=== PATIENT | female | born 1980 | race Caucasian/White ===

== ENCOUNTER 2016-10-05 16:09 | Emergency (ER) | payer BC ==
[~2016-10-05] VITALS: Ht 175.3 cm; Wt 63.6 kg
[~2016-10-05 16:09] MED LIST: ADVI200T PO; PENI50TA PO
[2016-10-05] MEDS ORDERED: [UNRECOGNIZED DRUG - OTHER] (16:15)
[2016-10-05] MEDS ORDERED: [UNRECOGNIZED DRUG - OTHER] XX (17:45)
[2016-10-05] MEDS ORDERED: NORCOTAB PO (17:51)
[2016-10-05] MEDS ORDERED: IBUP80TA PO (17:51)
[2016-10-05] MEDS ORDERED: ROBA500T PO (17:51)
[2016-10-05 17:56] VITALS: BP 121/68
== END 2016-10-05 18:13 | disposition home or self-care (01) ==
LOC: M ED 16:09
DX: M54.32 Sciatica, left side (principal)

== ENCOUNTER → 2018-03-10 | Outpatient (REF) | payer BC, OTHER, SELFPAY ==
[~2018-03-10] MED LIST changes: +IBUP80TA PO; +NORCOTAB PO; +ROBA500T PO; +[UNRECOGNIZED DRUG - OTHER]; +[UNRECOGNIZED DRUG - OTHER] XX
[2018-03-10 19:04] LABS: APPEARANCE, URINE CLEAR (CLEAR); BACTERIA, URINE AUTO NEGATIVE (NEGATIVE); BILIRUBIN, URINE AUTO NEGATIVE (NEGATIVE); BLOOD, URINE BLOOD NEGATIVE (NEGATIVE); COLOR, URINE STRAW (YELLOW); GLUCOSE, URINE (UA) AUTO NEGATIVE (NEGATIVE); KETONE, URINE AUTO NEGATIVE (NEGATIVE); LEUKOCYTE ESTERASE, URINE AUTO NEGATIVE (NEGATIVE); NITRITE, URINE AUTO NEGATIVE (NEGATIVE); PROTEIN, URINE AUTO NEGATIVE (NEGATIVE); RBC, URINE AUTO 0 /HPF (0-3); SPECIFIC GRAVITY URINE AUTO 1.004 (1.002-1.035); SQUAMOUS EPITHELIAL CELL UR AU 0 /HPF (0-6); UROBILINOGEN, URINE AUTO 0.2 mg/dL (0.0-2.0); WBC, URINE AUTO 0 /HPF (0-3)
== END ==
LOC: M LAB REF 16:29
PROVIDERS: ATTEND Physician Assistant Medical
DX: N39.0 Urinary tract infection, site not specified (principal)

== ENCOUNTER → 2020-04-28 | Outpatient (REF) | payer OTHER ==
[~2020-04-28] MED LIST changes: +HYDR-3715 PO; -NORCOTAB PO; +PENI500T PO; -PENI50TA PO
== END ==
LOC: M LAB REF 21:43
PROVIDERS: ATTEND Physician Assistant Medical
DX: Z20.828 Contact with and (suspected) exposure to other viral communicable diseases (principal)

== ENCOUNTER → 2022-09-29 | Outpatient (CLI) | payer OTHER ==
[2022-09-29 15:30] LABS: HEMATOCRIT 42.4 % (36.0-47.0); HEMOGLOBIN 14.3 g/dl (12.0-15.5); MEAN CORPUSCULAR HEMOGLOBIN 29.5 pg (27.0-33.0); MEAN CORPUSCULAR HGB CONC 33.7 g/dl (32.0-36.5); MEAN CORPUSCULAR VOLUME 87.6 fl (80.0-96.0); PLATELET COUNT, AUTOMATED 277 10^3/uL (150-450); RED BLOOD COUNT 4.84 10^6/uL (4.00-5.40); WHITE BLOOD COUNT 7.3 10^3/uL (4.0-10.0)
[2022-09-29 15:56] LABS: HEMOGLOBIN A1c 4.9 % (4.0-6.0)
[2022-09-29 16:05] LABS: ALBUMIN 3.9 G/DL (3.2-5.2); ALKALINE PHOSPHATASE 44 U/L (46-116); ALT/SGPT 15 U/L (7.0-40); AST/SGOT < 8 U/L (<34); BILIRUBIN,TOTAL 0.3 MG/DL (0.3-1.2); BLOOD UREA NITROGEN 14 MG/DL (9-23); CALCIUM LEVEL 9.1 MG/DL (8.5-10.1); CARBON DIOXIDE LEVEL 29 MMOL/L (20-31); CHLORIDE LEVEL 107 MMOL/L (98-107); CHOLESTEROL LEVEL 144 MG/DL (<200); CHOLESTEROL RISK RATIO 2.61 (<5); CREATININE FOR GFR 0.61 MG/DL (0.55-1.30); GLOMERULAR FILTRATION RATE > 60.0 (>58); GLUCOSE, FASTING 78 MG/DL (60-100); HDL CHOLESTEROL 55.1 MG/DL (>40); LDL CHOLESTEROL 69.9 MG/DL (<100); NON-HDL-C 88.9 MG/DL; POTASSIUM SERUM 4.4 MMOL/L (3.5-5.1); SODIUM LEVEL 142 MMOL/L (136-145); TOTAL IRON BINDING CAPACITY 324 UG/DL (250-425); TOTAL PROTEIN 6.7 G/DL (5.7-8.2); TRIGLYCERIDES LEVEL 95 MG/DL (<150)
[2022-09-29 16:06] LABS: IRON (FE) 85 UG/DL (50-170); PERCENT SATURATION 26.2 % (13.2-45.0)
== END ==
LOC: M LAB 14:58
PROVIDERS: ATTEND Family Medicine
DX: D64.9 Anemia, unspecified (principal); R53.83 Other fatigue; E03.9 Hypothyroidism, unspecified